=== PATIENT | male | born 2005 | race Caucasian/White ===

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

== ENCOUNTER 2024-12-20 14:51 | Emergency (ER) | payer OTHER, SELFPAY ==
[2024-12-20] VITALS (7 sets, daily range): BP systolic 93–108; BP diastolic 57–82; PULSE 80–108; RESP 12–20; TEMP 36.4–37.2; O2SAT 94–100; BMI 22.0
--- OUTSIDE RECORDS SUMMARY | 2024-12-20 15:13 | XMS RPT_ITS | CCD ---
Author Organization [facility] Care Team Providers Care Assistive Technology Trainer Name Role Phone JOHNNY ELAM Unavailable Unavailable JOHNNY ELAM Unavailable Unavailable TRISTAN SANTIZO Attending Unavailable TRISTAN SANTIZO Primary Care Unavailable TRISTAN SANTIZO Admitting Unavailable Results Test Name Value Interpretation Reference Range Facility CBC + DIFFon 06-30-2024 Baso # 0.02 x10EE3/UL Normal 0.00 - 0.10 [facility] Comment on above: Performed By: #### 2 86466 #### [facility],[address] [place] [address] 93021 Basophils/100 WBC (Bld) 0.3 % Normal 0.0 - 2.0 [facility] Comment on above: Performed By: #### 2 40143 #### [facility],[address] [place] [address] 82441 CBC + DIFF Normal [facility] Comment on above: Result Comment: CBC- COMPLETE BLOOD COUNT Performed By: #### 2 35229 #### [facility],[address] [place] [address] 36158 EO # 0.37 x10EE3/UL Normal 0.00 - 0.50 [facility] Comment on above: Performed By: #### 2 89154 #### [facility],[address] [place] [address] 91206 Eosinophils/100 WBC (Bld) 4.6 % Normal 0.0 - 7.0 [facility] Comment on above: Performed By: #### 2 93772 #### [facility],[address] [place] [address] 50334 Erythrocyte distribution width (RBC) [Ratio] 12.8 % Normal 12.0 - 15.6 [facility] Comment on above: Performed By: #### 2 49645 #### [facility],[address] [place] [address] 74172 Hematocrit (Bld) [Volume fraction] 44.9 % Normal 40.0 - 52.0 [facility] Comment on above: Performed By: #### 2 91982 #### [facility],[address] [place] [address] Hemoglobin (Bld) [Mass/Vol] 15.5 g/dL Normal 13.0 - 17.5 [facility] Comment on above: Performed By: #### 2 45426 #### [facility],[address] [place] [address] Lymph # 0.75 x10EE3/UL Low 0.80 - 2.80 [facility] Comment on above: Performed By: #### 2 55589 #### [place] [id number] Lymphocytes/100 WBC (Bld) 9.1 % Low 20.0 - 45.0 [facility] Comment on above: Performed By: #### 2 74458 #### [facility],[address] [place] [address] 84388 MANUAL DIFF N/A Normal [facility] Comment on above: Performed By: #### 2 16309 #### [facility],[address] [place] [address] 70096 MCH (RBC) [Entitic mass] 34 pg High 27 - 33 [facility] Comment on above: Performed By: #### 2 04889 #### [address] [address] MCHC 35 X10 3 Normal 32 - 36 [facility] Comment on above: Performed By: #### 2 39788 #### [address] [address] MCV (RBC) [Entitic vol] 98 fL Normal 81 - 98 [facility] Comment on above: Performed By: #### 2 21482 #### [facility],[address] [place] [address] 99839 Medina # 1.20 x10EE3/UL High 0.20 - 1.00 [facility] Comment on above: Performed By: #### 2 68335 #### [facility],[address] [place] [address] 23824 MONOS % 14.7 % High 0.0 - 10.0 [facility] Comment on above: Performed By: #### 2 99473 #### [facility],[address] [place] [address] Morphology Juvenal (Bld) [Interp] N/A Normal [facility] Comment on above: Performed By: #### 2 53203 #### [facility],[address] [place] [address] Neut # 5.82 x10EE3/UL Normal 1.50 - 7.10 [facility] Comment on above: Performed By: #### 2 11071 #### [place] [address] Neutrophils/100 WBC (Bld) 71.3 % Normal 46.0 - 76.0 [facility] Comment on above: Performed By: #### 2 67706 #### [facility],[address] [place] [address] PLATELET 245 x10EE3/UL Normal 150 - 450 [facility] Comment on above: Performed By: #### 2 10523 #### [facility],[address] [place] [address] 26555 Platelet mean volume (Bld) [Entitic vol] 7.4 fL Normal 6.4 - 10.5 [facility] Comment on above: Result Comment: AUTO MATED DIFFERENTIAL Performed By: #### 2 26550 #### [facility],[address],[place] [address] RBC 4.56 x 10EE6/UL Normal 4.50 - 6.00 [facility] Comment on above: Performed By: #### 2 18345 #### [facility],[address] [place] [address] 34919 WBC 8.2 x 10EE3/UL Normal 4.5 - 10.8 [facility] Comment on above: Performed By: #### 2 87073 #### [facility],[address] [place] [address] 20962 CMP with eGFRon 06-30-2024 AGE 19 years Normal [facility] Comment on above: Performed By: #### 2 42701 ####[facility],[address] [place] [address] 01135 Albumin [Mass/Vol] 3.5 g/dL Normal 3.4 - 5.0 [facility] Comment on above: Performed By: #### 2 38714 ####[facility],[address] [place], [place] [id number] Albumin/Globulin [Mass ratio] 1.0 {ratio} Normal 0.9 - 1.6 [facility] Comment on above: Performed By: #### 2 88341 ####[facility],[address] [place] [address] 48706 ALK PHOS 73 U/L Normal 46 - 116 [facility] Comment on above: Performed By: #### 2 21752 ####[facility],[address] [place] [address] 38473 ALT [Catalytic activity/Vol] 34 U/L Normal 16 - 63 [facility] Comment on above: Performed By: #### 2 66263 ####[facility],[address] [place] [address] 50409 Anion gap [Moles/Vol] 9 mmol/L Low 10 - 20 [facility] Comment on above: Performed By: #### 2 26682 ####[facility],[address] [place] [address] 56421 AST [Catalytic activity/Vol] 21 U/L Normal 15 - 37 [facility] Comment on above: Performed By: #### 2 53353 ####[facility],[address] [place] [address] 96328 B/C RATIO 13 ratio Normal 0 - 30 [facility] Comment on above: Performed By: #### 2 69487 ####[facility],[address] [place] [address] 10023 Bilirubin [Mass/Vol] 0.3 mg/dL Normal 0.2 - 1.0 [facility] Comment on above: Performed By: #### 2 35955 ####[facility],[address] [place] [address] 83302 Calcium [Mass/Vol] 8.8 mg/dL Normal 8.5 - 10.1 [facility] Comment on above: Performed By: #### 2 48494 ####[facility],[address] [place], [place] [id number] Chloride [Moles/Vol] 103 mmol/L Normal 98 - 107 [facility] Comment on above: Performed By: #### 2 25183 ####[facility],[address] [place] [address] 26911 CMP with eGFR Normal [facility] Comment on above: Result Comment: COMP REHENSIVE METABOLIC PANEL Performed By: #### 2 09799 ####[facility],[address] [place] [address] 06372 CO2 [Moles/Vol] 29.1 mmol/L Normal 21.0 - 32.0 [facility] Comment on above: Performed By: #### 2 18598 ####[facility],[address] [place] [address] 45390 Creatinine [Mass/Vol] 0.92 mg/dL Normal 0.70 - 1.30 [facility] Comment on above: Performed By: #### 2 05653 ####[facility],[address] [place] [address] 26697 GFR/1.73 sq M.predicted among non-blacks MDRD (S/P/Bld) [Vol rate/Area] mL/min/{1.73_m2} Normal 60 - 999 [facility] Comment on above: Performed By: #### 2 26203 ####[facility],[address] [place] [address] 05545 Result Comment: ACCO RDING TO THE NATIONAL KIDNEY DISEASE EDUCATION PROGRAM(NKDE), A NORMAL eGFR IS A VALUE GREATER THAN OR EQUAL TO 60 ML/MIN/1.73 SQ METERS. CHRONIC KIDNEY DISEASE: <60mL/MIN/1.73 SQ METERS KIDNEY FAILURE: <15mL/MIN/1.73 SQ METERS THIS TEST SHOULD ONLY BE USED FOR PATIENTS 18 YEARS OF AGE AND OLDER. Globulin (S) [Mass/Vol] 3.4 g/dL Normal 1.5 - 3.8 [facility] Comment on above: Performed By: #### 2 74619 ####[facility],[address] [place] [address] 33425 Glucose [Mass/Vol] 88 mg/dL Normal 74 - 106 [facility] Comment on above: Performed By: #### 2 25408 ####[facility],[address] [place] [address] 84601 Potassium [Moles/Vol] 4.1 mmol/L Normal 3.5 - 5.1 [facility] Comment on above: Performed By: #### 2 47580 ####[facility],[address] [place] [address] 57950 Protein [Mass/Vol] 6.9 g/dL Normal 6.4 - 8.2 [facility] Comment on above: Performed By: #### 2 86076 ####[facility],[address] [place] [address] 68644 Sodium [Moles/Vol] 137 mmol/L Normal 136 - 145 [facility] Comment on above: Performed By: #### 2 21918 ####[facility],[address] [place] [address] 22267 Urea nitrogen [Mass/Vol] 12 mg/dL Normal 7 - 18 [facility] Comment on above: Performed By: #### 2 12033 ####[facility],[address] [place] [address] 95562 CORONAVIRUS (SARS) ANTIGEN T ESTon 06-30-2024 EXTERNAL QC DONE? YES Normal [facility] Comment on above: Performed By: #### 2 09049 #### [facility],[address] [place] [address] INTERNAL CONTROL PASS Normal [facility] Comment on above: Performed By: #### 2 98858 #### [facility],[address] [place] [address] 82103 SARS ANTIGEN Negative Normal NORMAL: NEGATIVE [facility] Comment on above: Performed By: #### 2 58260 #### [facility],[address] [place] [address] 33783 SEND TO ? NO Normal [facility] Comment on above: Result Comment: SARS -CoV-2 THIS TEST IS BEING USED UNDER THE FDA EUA PROCEDURE. THIS ASSAY HAS BEEN VALIDATED AT [facility] FOR USE WITH NASAL AND NASOPHARYNGEAL SWAB SPECIMENS. INTERPRETIVE DATA TEST RESULTS SHOULD ALWAYS BE CONSIDERED IN THE CONTEXT OF CLINICAL OBSERVATIONS AND EPIDEMIOLOGICAL DATA IN MAKING FINAL DIAGNOSIS AND PATIENT MANAGEMENT DECISIONS. PATIENT MANAGEMENT SHOULD FOLLOW CURRENT CDC GUIDELINES. THE LARRY SARS ANTIGEN MICH DOES NOT DIFFERENTIATE BETWEEN SARS-CoV & SARS-CoV-2. A POSITIVE TEST RESULT INDICATES THE PRESENCE OF SARS-CoV-2 NUCLEOCAPSID PROTEIN ANTIGEN, AND THE PATIENT IS INFECTED WITH THE VIRUS AND PRESUMED TO BE CONTAGIOUS. A NEGATIVE TEST RESULT FOR THIS TEST MEANS THAT SARS-CoV-2 NUCLEOCAPSID PROTEIN ANTIGEN WAS NOT PRESENT IN THE SPECIMEN ABOVE THE LIMIT OF DETECTION. HOWEVER, A NEGATIVE RESULT DOES NOT RULE OUT COVID-19 AND SHOULD NOT BE USED THE SOLE BASIS FOR TREATMENT OR PATIENT MANAGEMENT DECISIONS. A NEGATIVE RESULT DOES NOT EXCLUDE THE POSSIBILITY OF COVID-19. NEGATIVE RESULTS, FROM PATIENTS WITH SYMPTOM ONSET BEYOND FIVE DAYS, SHOULD BE TREATED PRESUMPTIVE AND CONFIRMATION WITH A MOLECULAR ASSAY, IF NECESSARY, FOR PATIENT MANAGEMENT, MAY BE PERFORMED. WHEN DIAGNOSTIC TESTING IS NEGATIVE, THE POSSIBLILTY OF A FALSE NEGATIVE RESULT SHOULD BE CONSIDERED IN THE CONTEXT OF A PATIENT'S RECENT EXPOSURES AND THE PRESENCE OF CLINICAL SIGNS AND SYMPTOMS CONSISTENT WITH COVID-19. THE POSSIBILITY OF A FALSE NEGATIVE RESULT SHOULD ESPECIALLY BE CONSIDERED IF THE PATIENT'S RECENT EXPOSURES OR CLINICAL PRESENTATION INDICATE THAT COVID-19 IS LIKELY, AND DIAGNOSTIC TESTS FOR OTHER CAUSES OF ILLNESS (e.g., OTHER RESPIRATORY ILLNESS) ARE NEGATIVE. IF COVID-19 IS STILL SUSPECTED BASED ON EXPOSURE HISTORY TOGETHER WITH OTHER CLINICAL FINDINGS, RE-TESTING SHOULD BE CONSIDERED BY HEALTHCARE PROVIDERS IN CONSULTATION WITH PUBLIC HEALTH AUTHORITIES. Performed By: #### 2 07397 #### [facility],[address] [place] [address] CT ABDOMEN/PELVIS [facility] 2023 CT ABDOMEN/PELVIS [place] [address] Patient: FELICIA WELLER Phone#: : 2005 Age: 19 Gender: M Pt. Type: ER Account: [id number] Location: [facility] Ordering: TRISTAN SANTIZO Exam Date: 06/30/2024/14:12 Family Phys: Charge Code: [id number] Physician: [place] Order #: [id number] Dose#: 10.40 PROCEDURE: CT ABDOMEN/PELVIS WITH CONTRAST COMPARISON: [facility], CT, ABDOMEN/PELVIS W CON, 11/04/2017, 20:12. INDICATIONS: Abdominal pain. TECHNIQUE: After obtaining the patient's consent, CT images were created with non-ionic intravenous contrast material. All CT scans at this facility use dose modulation, iterative reconstruction, and/or weight based dosing when appropriate to reduce radiation dose to as low as reasonably achievable. IV CONTRAST: Omnipaque 350,80ml TOTAL DOSE: 10.40 CTDIvol(mGy) FINDINGS: LIVER: Normal. No enlargement, atrophy, abnormal density, or significant focal lesion. BILIARY: Normal. No visible dilatation or calcification. PANCREAS: Normal. No lesion, fluid collection, ductal dilatation, or atrophy. SPLEEN: Surgical clips are present at the splenic hilum. No enlargement or focal lesion. KIDNEYS: Normal. No mass, obstruction, or calcification. ADRENALS: Normal. No mass or enlargement. AORTA/VASCULAR: Normal. No aneurysm or dissection. RETROPERITONEUM: Normal. No mass or adenopathy. BOWEL/MESENTERY: Normal. No visible mass, obstruction, or bowel wall thickening. ABDOMINAL WALL: Normal. No mass or hernia. URINARY BLADDER: Normal. No visible focal wall thickening, lesion, or calculus. PELVIC NODES: Normal. No adenopathy. PELVIC ORGANS: Trace free fluid is present in the pelvis. No visible mass. Pelvic organs appropriate for patient age. BONES: Normal. No bony lesion or fracture. LUNG BASES: Normal. No visible pulmonary or pleural disease. OTHER: Negative. Continued Report - Page 2 of 2 Patient: FELICIA WELLER Phone#: : 2005 Age: 19 Gender: M Pt. Type: ER Account: [id number] Location: [facility] Ordering: TRISTAN SANTIZO Exam Date: 06/30/2024/14:12 Family Phys: Charge Code: [id number] Physician: [place] Order #: [id number] Dose#: 10.40 CONCLUSION: 1. Trace fluid is present in the pelvis. 2. There is no evidence of acute abdominal or pelvic abnormality. Dictated by: Shante Cordoba MD on 06/30/2024 at 14:42 Approved by: Shante Cordoba MD on 06/30/2024 at 14:46 Normal [facility] ED MED ADMINISTRATION DETAIL on 06-30-2024 ED MED ADMINISTRATION DETAIL Chief Design Branch Medication Administration Record [address] [address] [id number] 06/30/2024 Patient: FELICIA WELLER Sex: Male : 2005 Age: 19y MEASUREMENTS: Wt: 74.8 kg, Ht/Shiva: 73.0 in, BMI: 21.77 ALLERGIES: No known drug allergies Medication Ordered Medication Administration Date/Time 1 of 1 Normal [facility] ED NURSES CLINICAL NOTEon ED NURSES CLINICAL NOTE Nurse Narrative Nurse Clinical Narrative [address] [address] [id number] 06/30/2024 Patient: FELICIA WELLER Sex: Male : 2005 Age: 19y Disposition: Discharge to Home Disposition Decision Time: 15:27 06/30/2024 Departure Time: 15:41 06/30/2024 TRIAGE Arrived by private vehicle. Historian: patient. Accompanied by family. Triage time: 13:45 06/30/2024. Acuity: LEVEL 3. Chief Complaint: ABDOMINAL PAIN and DIARRHEA. Onset. (Saturday). The patient has had diarrhea and abdominal pain. No nausea or vomiting. SEPSIS SCREEN: NEGATIVE. SIRS criteria negative: heart rate greater than 90. No possible sources of infection. -- 13:53 06/30/24 MARLEN Young R.N. 13:52 06/30/24. BP: 122/78 MAP: 93. HR: 91. RR: 17. O2 saturation: 98% Temperature: 98.9 F. Pain level now 4/10. Intermittent. -- 13:52 06/30/24 MARLEN Young R.N. Measurements: 13:51 06/30/24 Wt: 74.8 kg, Ht/Shiva: 73.0 in, BMI: 21.77 -- 13:51 06/30/24 MARLEN Young R.N. Medications: no known home medications -- 13:50 06/30/24 MARLEN Young R.N. Allergies: 1 of 3 Nurse Narrative no known drug allergies -- 13:49 06/30/24 MARLEN Young R.N. Home Medications/Allergy Information Source: patient -- 13:49 06/30/24 MARLEN Young R.N. Problems: no known problem -- 13:50 06/30/24 MARLEN Young R.N. 13:45 06/30/24. Preferred pharmacy ([facility]). -- 13:53 06/30/24 MARLEN Young R.N. ADDITIONAL SURGERIES: Splenectomy -- 13:49 06/30/24 MARLEN Young R.N. Hernia Repair -- 13:50 06/30/24 MARLEN Young R.N. elbow -- 13:50 06/30/24 MARLEN Young R.N. History 13:45 06/30/24. PAST MEDICAL HX: Immunizations: status is unknown. SOCIAL HX: Heavy tobacco smoker (cigarette)- 1 pack per day. Occasional alcohol use. Weekly drug use: marijuana. Infectious disease exposure: No infectious disease exposure. ABUSE ASSESSMENT: The patient answered yes to the question(s) Do you feel safe in your home? and no to the question(s) Are you afraid to go home?. Abuse denied. No suspicion of abuse. SELF HARM ASSESSMENT: Self harm assessment was performed. The patient answered no to the question(s) Have you recently felt down, depressed, or hopeless? and Do you have thoughts of harming or killing yourself?. FALL RISK ASSESSMENT: Fall risk assessment completed. No risk factors identified. -- 13:53 06/30/24 MARLEN Young R.N. 2 of 3 Nurse Narrative 13:45 06/30/24. SOCIAL HX: The patient has not traveled outside the [place] Infectious disease exposure: No infectious disease exposure. -- 13:53 06/30/24 MARLEN Young R.N. Interventions 13:45 06/30/24. Advanced care plan (Full Code). -- 13:53 06/30/24 MARLEN Young R.N. PHYSICAL ASSESSMENT 14:19 06/30/24. Ambulatory to room. GENERAL / NEURO / PSYCH: Alert. Oriented X 4. Appears in no acute distress. HEENT: Mucous membranes are pink. RESPIRATORY: Respirations not labored. Breath sounds within normal limits. CVS: Capillary refill less than 2 seconds. GI / : Abdomen soft. Abdominal tenderness in the periumbilical area. Bowel sounds within normal limits. SKIN: Skin is warm and dry. -- 14:19 06/30/24 MARLEN Long R.N. NURSING PROGRESS NOTES 14:06/30/24. ( Patient swabbed for flu and covid and sent to lab.). -- 14:20 06/30/24 MARLEN Long R.N. 14:20 06/30/24. Site #1 started via IV in the right antecubital space with a 20g angiocath; 1 attempt. Blood drawn: red, green, purple and yellow tube(s). Saline lock flushed with 5 mL saline. -- 14:20 06/30/24 MARLEN Long R.N. DISPOSITION / DISCHARGE 15:40 06/30/24. Site #1 removed upon discharge. Bandaid applied. -- 15:40 06/30/24 MARLEN Long R.N. Departure time: 15:41 06/30/2024. Condition at departure: improved. No learning barriers present. Discharge instructions provided and reviewed with the patient. The patient was discharged by the physician. The patient was discharged home and accompanied by parent. The patient left ambulatory and via private vehicle. Parent driving. -- 15:41 06/30/24 MARLEN Long R.N. (Electronically signed by Martin Long R.N. 06/30/24 15:41:22 EST) Generated by [facility] 3 of 3 Normal [facility] ED ORDER SHEET ([facility] ONLY)on 06-30-2024 ED ORDER SHEET ([facility] ONLY) Order Sheet Order Sheet [address] [address] [id number] 06/30/2024 Patient: FELICIA WELLER Sex: Male : 2005 Age: 19y MEASUREMENTS: Wt: 74.8 kg, Ht/Shiva: 73.0 in, BMI: 21.77 ALLERGIES: No known drug allergies MEDICATION/IV/DRIP/FLUID ORDERS Order Description Priority Entered Acknowledged Completed LAB ORDERS Order Description Priority Entered Acknowledged Collected Completed CBC w Diff Stat Stat 13:57 06/30/2024 14:00 06/30/2024 Bhargav Oliveira D.O. RShanta CMP Stat Stat 13:57 06/30/2024 14:00 06/30/2024 Bhargav Oliveira D.O. R.N. Lipase Stat Stat 13:57 06/30/2024 14:00 06/30/2024 Bhargav Oliveira D.O. R.N. Urinalysis Stat Stat 13:57 06/30/2024 14:00 06/30/2024 Tristan Long, 1 of 2 Order Sheet Juan Santizo R.N. Flu Swab (Influenzae Stat 13:57 06/30/2024 14:00 06/30/2024 AAg) Stat Bhargav Oliveira D.O. R.N. Rapid COVID (SARS) Stat 13:57 06/30/2024 14:00 06/30/2024 ANTIGEN TEST Stat Bhargav Oliveira D.O. R.N. Lyme Early Stat 14:10 06/30/2024 14:18 06/30/2024 (Signs/Symp <=30 Tristan Long, Days) [CCL] Stat Juan Santizo R.N. DIAGNOSTIC STUDY ORDERS Order Description Priority Entered Acknowledged Completed CT ABD/PEL w Cont Stat Stat 13:57 06/30/2024 14:00 Tristan Santizo 06/30/2024 Juan Long R.N. Reason for Study: Abdominal Pain STAFF ORDERS Order Description Priority Entered Acknowledged Collected Completed IV Saline Lock 13:57 06/30/2024 14:00 06/30/2024 Bhargav Oliveira D.O. R.N. [Electronically signed by Tristan Santizo D.O. (06/30/2024 15:29 EST)] 2 of 2 Normal [facility] ED PHYSICIAN CLINICAL REPORT on 06-30-2024 ED PHYSICIAN CLINICAL REPORT Narrative Physician Clinical Narrative [address] [address] [id number] 06/30/2024 Patient: FELICIA WELLER Sex: Male : 2005 Age: 19y Disposition: Discharge Disposition Decision Time: 15:27 06/30/2024 Measurements Wt: 74.8 kg, Ht/Shiva: 73.0 in, BMI: 21.77 Initial Vital Sign Measured Time BP MAP HR RR O2Sat ETCO2 Temp Pain GCS RTS 13:52 06/30/2024 122/78 93 91 17 98% 98.9 F 4 Time Seen: 13:52 06/30/2024. Arrived- By private vehicle. Historian- patient. HISTORY OF PRESENT ILLNESS Chief Complaint: ABDOMINAL PAIN. (3 days). (Nausea, vomiting, diarrhea over the past 3 days. This is improved however last night began having upper abdominal pain. Mainly epigastric and right upper quadrant. Feeling somewhat improved this morning however the pain was very sharp last night and he only slept approximately 2 hours. Denies any fever, chills, urinary symptoms, cough, chest pain, shortness of breath. No sick contacts.). REVIEW OF SYSTEMS RESPIRATORY: No difficulty breathing or cough. CVS: No chest pain. CONSTITUTIONAL: No fever or chills. : No difficulty with urination, pain with urination or urinary frequency. GI: No constipation. 1 of 15 Narrative PAST HISTORY no known problem Surgeries: elbow Hernia Repair Splenectomy Medications: no known home medications Allergies: no known drug allergies Home Medications/Allergy Information Source: patient - Aline Young R.N., 06/30/2024 13:49 EST SOCIAL HISTORY Smoker - current smoking amount unknown. No alcohol use or drug use. ADDITIONAL NOTES The nursing notes have been reviewed. PHYSICAL EXAM Vital Signs: Have been reviewed. Appearance: Alert. No acute distress. ENT: Pharynx normal. Neck: Normal inspection. Neck supple. CVS: Normal heart rate and rhythm. Heart sounds normal. Pulses normal. Respiratory: No respiratory distress. Breath sounds normal. Abdomen: Soft and nontender. Skin: Skin warm and dry. Normal skin color. No rash. 2 of 15 Narrative Extremities: No lower extremity edema. Neuro: No motor deficit. No sensory deficit. LABS, X-RAYS, AND EKG CT Abdomen - Pelvis: Normal study. The study was independently viewed by me and interpreted by the radiologist. Laboratory Tests: CBC + DIFF Final KIRSTIN: 06/30/2024 14:10:00 EST MsgRcvd: 06/30/2024 14:33 EST Lab Test Result Reference Status Received Comments 06/30/2024 14:33 CBC-COMPLETE CBC + DIFF Final EST BLOOD COUNT 06/30/2024 14:33 WBC 8.2 x 10/UL 4.5 - 10.8 Final EST 06/30/2024 14:33 RBC 4.56 x 10/UL 4.50 - 6.00 Final EST 06/30/2024 14:33 HEMOGLOBIN 15.5 g/dl 13.0 - 17.5 Final EST 06/30/2024 14:33 HEMATOCRIT 44.9 % 40.0 - 52.0 Final EST 06/30/2024 14:33 MCV 98 fl 81 - 98 Final EST 34 pg 06/30/2024 14:33 MCH 27 - 33 Final Above high normal EST 06/30/2024 14:33 MCHC 35 X10 3 32 - 36 Final EST 3 of 15 Narrative 06/30/2024 14:33 RDW/CV 12.8 % 12.0 - 15.6 Final EST 06/30/2024 14:33 PLATELET 245 x10/UL 150 - 450 Final EST 06/30/2024 14:33 AUTOMATED MPV 7.4 fl 6.4 - 10.5 Final EST DIFFERENTIAL 06/30/2024 14:33 NEUT % 71.3 % 46.0 - 76.0 Final EST 9.1 % 06/30/2024 14:33 LYMPH % 20.0 - 45.0 Final Below low normal EST 14.7 % 06/30/2024 14:33 MONOS % 0.0 - 10.0 Final Above high normal EST 06/30/2024 14:33 EO % 4.6 % 0.0 - 7.0 Final EST 06/30/2024 14:33 BASO % 0.3 % 0.0 - 2.0 Final EST 0.75 x10/UL 06/30/2024 14:33 Lymph # 0.80 - 2.80 Final Below low normal EST 06/30/2024 14:33 Neut # 5.82 x10/UL 1.50 - 7.10 Final EST 1.20 x10/UL 06/30/2024 14:33 Medina # 0.20 - 1.00 Final Above high normal EST 06/30/2024 14:33 EO # 0.37 x10/UL 0.00 - 0.50 Final EST 06/30/2024 14:33 Baso # 0.02 x10/UL 0.00 - 0.10 Final EST 06/30/2024 14:33 MANUAL DIFF N/A New Order EST 4 of 15 Narrative 06/30/2024 14:33 MORPHOLOGY N/A New Order EST CMP with eGFR Final KIRSTIN: 06/30/2024 14:10:00 EST MsgRcvd: 06/30/2024 14:53 EST Lab Test Result Reference Status Received Comments COMPREHENSIVE 06/30/2024 CMP with eGFR Final METABOLIC 14:53 EST PANEL 06/30/2024 SODIUM 137 mmol/l 136 - 145 Final 14:53 EST 06/30/2024 POTASSIUM 4.1 mmol/L 3.5 - 5.1 Final 14:53 EST 06/30/2024 CHLORIDE 103 mmol/L 98 - 107 Final 14:53 EST 06/30/2024 CO2 29.1 mmol/L 21.0 - 32.0 Final 14:53 EST 06/30/2024 GLUCOSE 88 mg/dl 74 - 106 Final 14:53 EST 06/30/2024 BUN 12 mg/dl 7 - 18 Final 14:53 EST 06/30/2024 CREATININE 0.92 mg/dl 0.70 - 1.30 Final 14:53 EST 06/30/2024 AST/SGOT 21 U/L 15 - 37 Final 14:53 EST 06/30/2024 ALK PHOS 73 U/L 46 - 116 Final 14:53 EST 5 of 15 Narrative 06/30/2024 C (more content not included)... Normal [facility] ED SUPER BILLon 06-30-2024 ED SUPER BILL [address] [address] [id number] 06/30/2024 Patient: FELICIA WELLER Sex: Male : 2005 Age: 19y Item Professional Category Description Facility Code Code Quantity Fee Total Nurse/E/M EMERGENCY 453581 1 $0.00 $0.00 DEPARTMENT VISIT MODERATE SEVERITY (54494) Grand Total $0.00 Providers Tristan Santizo D.O. Chief Complaint ABDOMINAL PAIN. Principal Diagnosis Gastroenteritis. ICD-10 Codes 1 of 2 [facility] K52.9: Noninfective gastroenteritis and colitis, unspecified 2 of 2 Normal [facility] ED VISIT SUMMARYon ED VISIT SUMMARY Visit Overview Visit Overview [address] [address] [id number] 06/30/2024 Patient: FELICIA WELLER Sex: Male : 2005 Age: 19y 06/30/2024 03:41 PM EST ED Arrival:13:06 06/30/2024 EST Status: Recent Travel:no Language:eng Adv Directive: Isolation Status: Ethnicity:N Fall Risk:no risk Infectious Disease Exposure:no Measurements:6'1 / 185.4 Self-Harm Status:risk Sepsis Screen:negative cm 165.0 lb / 74.8 kg Chief Complaint:ABDOMINAL PAIN, DIARRHEA, and (Saturday) ALLERGIES No Known Drug Allergies HOME MEDICATIONS None PAST MEDICAL HISTORY / PROBLEMS Immunizations: status is unknown None 1 of 3 Visit Overview PAST SURGICAL HISTORY elbow Hernia Repair Splenectomy SOCIAL HISTORY Smoking status: Yes Alcohol use: Yes Drug use: Yes ED COURSE MEDICATIONS GIVEN IN EMERGENCY DEPARTMENT IV SITE INFORMATION INTAKE OUTPUT REASSESMENT (most recent) 14:19 06/30/24. Ambulatory to room. GENERAL / NEURO / PSYCH: Alert. Oriented X 4. Appears in no acute distress. HEENT: Mucous membranes are pink. RESPIRATORY: Respirations not labored. Breath sounds within normal limits. CVS: Capillary refill less than 2 seconds. GI / : Abdomen soft. Abdominal tenderness in the periumbilical area. Bowel sounds within normal limits. SKIN: Skin is warm and dry. VITAL SIGNS First Vitals Last Vitals Temp 13:52 06/30/24 98.9 F Temp 13:52 06/30/24 98.9 F BP 13:52 06/30/24 122/78 BP 13:52 06/30/24 122/78 HR 13:52 06/30/24 91 HR 13:52 06/30/24 91 RR 13:52 06/30/24 17 RR 13:52 06/30/24 17 O2 Sat 13:52 06/30/24 98% O2 Sat 13:52 06/30/24 98% Pain 13:52 06/30/24 4 Pain 13:52 06/30/24 4 ETCO2 13:52 06/30/24 ETCO2 13:52 06/30/24 2 of 3 Visit Overview First Vitals Last Vitals GCS 13:52 06/30/24 GCS 13:52 06/30/24 RTS 13:52 06/30/24 RTS 13:52 06/30/24 PROCEDURES NURSING INTERVENTIONS LABS / STUDIES LABS / STUDIES ORDERED CBC w Diff CMP CT ABD/PEL w Cont Flu Swab (Influenzae AAg) Lipase Lyme Early (Signs/Symp <=30 Days) [CCL] Rapid COVID (SARS) ANTIGEN TEST Urinalysis CLINICAL IMPRESSION GASTROENTERITIS 3 of 3 Normal [facility] ED VITALS FLOW SHEETon 06-30 ED VITALS FLOW SHEET Vitals Vital Sign Flow Sheet [address] [place] [address] [id number] 06/30/2024 Patient: FELICIA WELLER Sex: Male : 2005 Age: 19y Measurements Wt: 74.8 kg, Ht/Shiva: 73.0 in, BMI: 21.77 Measured Time BP MAP HR RR O2Sat ETCO2 Temp Pain GCS RTS 13:52 06/30/2024 122/78 93 91 17 98% 98.9 F 4 1 of 1 Normal [facility] INFLUENZA VIRUS RAPID A/Bon 06-30-2024 INFLUENZA VIRUS RAPID A/B INFLUENZA A NEGATIVE INFLUENZA B NEGATIVE INTERNAL NEG QC PASS INTERNAL POS QC PASS EXTERNAL QC DONE? YES SEND TO IC? NO A NEGATIVE TEST RESULT DOES NOT EXCLUDE INFECTION WITH INFLUENZA A OR B. THEREFORE, THE RESULTS OBTAINED FROM THIS FLU TEST SHOULD BE USED IN CONJUCTION WITH CLINICAL FINDINGS TO MAKE AN ACCURATE DIAGNOSIS. A POSITIVE RESULT DOES NOT RULE OUT CO-INFECTIONS WITH OTHER PATHOGENS OR IDENTIFY ANY SPECIFIC INFLUENZA A VIRUS SUBTYPE.CO-INFECTION WITH INFLUENZA A AND B IS RARE. IT IS RECOMMENDED THAT DUAL POSITIVE RESULTS BE CONFIRMED BY VIRAL CULTURE OR AN FDA-CLEARED INFLUENZA A AND B MOLECULAR ASSAY. INDIVIDUALS WHO HAVE RECEIVED NASALLY ADMINISTERED INFLUENZA A VACCINE MAY TEST POSITIVE IN COMMERCIALLY AVAILABLE INFLUENZA RAPID DIAGNOSTIC TESTS FOR UP TO THREE DAYS. RESULT CRITICAL? NO Normal [facility] Comment on above: Performed By: #### 2 [id number] ####[address] [address] LIPASEon 06-30-2024 Lipase [Catalytic activity/Vol] 21.0 U/L Normal 15.0 - 78.0 [facility] Comment on above: Result Comment: *PLE ASE NOTE THAT RANGES FOR LIPASE HAVE CHANGED OF 07/05/23 DUE TO AN ASSAY UPDATE BY THE SWORD SWALLOWER.THE NEW ASSAY RANGE IS 6-250 U/L, WITH A REFERENCE RANGE OF 16-77 U/L. Performed By: #### 2 [id number] #### [address] [place] [address] Pelvis WITH IV Contraston Pelvis WITH IV Contrast [facility] Imaging Services [address] [place] [address] Pelvis WITH IV Contrast MR#: [id number] Acct: [id number] Name: FELICIA WELLER Rep #: [id number] : 2005 M 15 From: Angela Aldrich PCP: Care Physician, No Primary Status: REG CLI Study: Pelvis WITH IV Contrast Date of Exam: 07/04/20 Exam# [id number] Ordering Dr: Ángel Moss NP P-C STUDY: CT PELVIS WITH CONTRAST REASON FOR EXAM: Male, 15 years old. HERNIA, LEFT SIDE BULGE, PT DOES A LOT OF LIFTING RADIATION DOSAGE (If Supplied By Facility): CTDIvol = ( 17.24 ) mGy, DLP = ( 883.82 ) mGycm TECHNIQUE: Transaxial imaging of the pelvis was performed without oral contrast. IV 100mL Isovue-300 was administered intravenously. Individualized dose optimization techniques were used for this CT. COMPARISON: None. FINDINGS: Normal urinary bladder. Normal visualized small intestine. Normal visualized colon. There is no pelvic fluid. There is no pelvic lymphadenopathy or mass lesion. Normal visualized pelvic arteries. There is a cystic lesion in the left inguinal canal near the inner ring measures approximately 1.9 x 0.9 x 0.9 cm may represent a seminiferous cyst. Normal osseous structures. CT/Pelvis WITH IV Contrast IMPRESSION: There is a cystic lesion in the left inguinal canal near the inner ring measures approximately 1.9 x 0.9 x 0.9 cm may represent a seminiferous cyst. Electronically Signed: Angela Valente, at 10:03 EST Tel , Service support , CC: AGUEDA Moss; No Primary Care Physician Research Administrator: Signed Normal [facility] Chest PA and Lateralon 02-01 Chest PA and Lateral [facility] Imaging Services [address] [place] [address] Chest PA and Lateral MR#: [id number] Acct: [id number] Name: FELICIA WELLER Rep #: [id number] : 2005 M 14 From: Keyur Lucas MD PCP: Status: REG CLI Study: Chest PA and Lateral Date of Exam: 02/02/20 Exam# [id number] Ordering Dr: Aspen Gutierrez NP STUDY: X-RAY CHEST REASON FOR EXAM: Male, 14 years old. fever, cough x 12 days TECHNIQUE: PA and lateral views of the chest. COMPARISON: None. FINDINGS: Patchy alveolar opacities in the upper left lung and lower right lung worrisome for bilateral pneumonia. Correlation with CT would be useful. There is no demonstrated pleural abnormality. Normal size heart. Normal mediastinum and vimal. Normal visualized pulmonary arteries. Normal visualized aortic arch and descending thoracic aorta. Normal visualized thoracic spine. Normal visualized ribs, clavicles, and shoulders. There is no demonstrated abnormality of the visualized soft tissue structures of the upper abdomen. RAD/Chest PA and Lateral IMPRESSION: Suspect bilateral pneumonia and correlation with CT would be useful. 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 [facility] Comment on above: Result Comment: Nega tive for This test was developed and its performance characteristics determined by [facility]'s [facility] [place]. This test has been authorized by FDA under an Emergency Use Authorization (EUA). This test has been validated in accordance with the FDA's Guidance Document Policy for Diagnostics Testing in Laboratories Certified to Perform High Complexity Testing under CLIA prior to Emergency use Authorization for Coronavirus Disease 2019 during the Public Health Emergency issued on September 05, 2019. COVID19 (SARS This test was developed and its performance characteristics determined by [facility]'s [facility] [place]. This test has been authorized by FDA under an Emergency Use Authorization (EUA). This test has been validated in accordance with the FDA's Guidance Document Policy for Diagnostics Testing in Laboratories Certified to Perform High Complexity Testing under CLIA prior to Emergency use Authorization for Coronavirus Disease 2019 during the Public Health Emergency issued on September 05, 2019. CoV2) by PCR. This test was developed and its performance characteristics determined by [facility]'s [facility] [place]. This test has been authorized by FDA under an Emergency Use Authorization (EUA). This test has been validated in accordance with the FDA's Guidance Document Policy for Diagnostics Testing in Laboratories Certified to Perform High Complexity Testing under CLIA prior to Emergency use Authorization for Coronavirus Disease 2019 during the Public Health Emergency issued on September 05, 2019. Coronavirus 2019on 0 COVID 19 Source COLLEGE PROFESSOR COLLEGE PROFESSOR Normal [facility] CNOVon 2018 CNOV Office Visit (PEDSWS) ----[facility]EL[facility]LL[facility] ([id number]) [facility] Ztyynfkzpd29/13/18 8:45 AM JOHNNY ELAM PEDSWS During your visit today, we recorded the following information about you: Temperature Pulse Respiration Blood pressure 97.1 degrees 80/minute 16/minute 102/62 Weight Height 66.7 kg 1.829 mAdam Suzanne Elam MD 2018 10:03 AM SignedCC: Patient presents with:Check finger: Right ring finger, noting clear drainage and redness. x 1 week.No known injuryHistory:Felicia Weller presents with swelling and redness in the R ring finger.Symptoms began 1 week(s) and since then have been progressive. The pain israted as 6 on a scale of 1-10, when touching it. Symptoms are not a result of an injury.started with blister/pimplePAST MEDICAL HISTORYDiagnosis Date- Blunt abdominal trauma 11/04/2017- Splenic laceration 11/04/2017ROS: otherwise normalPhysical Exam Findings:smiling and alert, in no acute distressExtremeties R 4th finger with split of cuticle with dried drainage. Erythemaand tenderness surrounding and extending across finger about 1 cm proximal tocuticle.Assessment: cellulitis of finger.Plan:soaksOffice Visit on 04/19/18-INFLUENZA VACCINE QUADRIVALENT AGE 3 YRS PLUS + IM-mupirocin (BACTROBAN) 2 % ointment-cephALEXin (KEFLEX) 500 mg capsulereviewed criteria for calling or returning for further evaluation. Johnny Elam MDmando [facility] 2018 10:03 AM Gufgox76 year old male here for INACTIVATED INFLUENZA VACCINE.6976-4136 SeasonPatient is identified by name and date of : Yes [] CONTRAINDICATIONS color enhancedsectionAge less than 6 months? NoAllergy to eggs, chicken, chicken feathers, or chicken dander? NoAllergy to thimerosal (a preservative) or formaldehyde, gelatin? NoHistory of severe reaction to any vaccine component or a previous dose ofinfluenza vaccination? NoHistory of Guillain-Williamsburg Syndrome within 6 weeks after a previous influenzavaccine? NoPatient is not moderately or severely ill? NoCurrent temperature greater or equal to 100.4F? NoHistory of Bone Marrow Transplant prior 6 months or solid organ transplant inthe past 3 months ? NoHistory of fainting after a prior injection or medical procedure? No-? If patient has fainted in the past, the CDC recommends sitting or lying downfor 15 minutes after the vaccination. [] VERIFICATION colorenhanced sectionWas the answer Yes for any of the above contraindications? Nocontraindications present. Acceptable to proceed with vaccine.Patient/guardian agrees the above answers are true to the best of theirknowledge? YesFlu vaccine information sheet given? YesSee immunization activity in [facility] for details of immunizations adminsteredtoday.Patient age: [age] year old For The 3594-9366 Flu Season6-35 months old: Fluzone 0.25 ml - IM (Preservative Free)3 years of age: Fluzone 0.5 ml - IM (Preservative Free)3 years and older: Fluzone 0.5 ml- IM-(with Preservatives)65+ years old:2-49 years old Fluzone High-Dose 0.5 ml - IM (Preservative Free)FLUMIST- intranasalREMEMBER: If patient is less than 9 years of age and this is the first vaccineof Influenza to be received in any flu season, they should receive a seconddose in one months time.Referring Provider: SELF [200]Allergies As of Date: 2018(No Known Allergies)Date Reviewed: 2018Reviewed by: Johnny Elam - Fully AssessedReason for Visit: Check finger [Other] Cmt: Right ring finger, noting clear drainage and redness. x 1 week. No known injury Imm/Inj [58] Cmt: Flu VaccineReason For Visit History RecordedPrimary Visit Diagnosis:Encounter for immunization [Z23] Other Visit Diagnoses:Cellulitis of finger of right hand [L03.011] Need for vaccination [Z23]Order(s):mupirocin (BACTROBAN) 2 % ointmentApply 1 application to affected area twice daily.Disp: 1 TubeRfl: 0 cephALEXin (KEFLEX) 500 mg capsuleTake 1 capsule by mouth three times daily for 10 days.Disp: 30 capsuleRfl: 0 INFLUENZA VACCINE QUADRIVALENT AGE 3 YRS PLUS + IM [[id number]] Order #: [id number] as of 2018 Sig: MUPIROCIN 2 % TOPICAL OINTMENT Apply 1 application to affect* CEPHALEXIN 500 MG CAPSULE Take 1 capsule by mouth three*Problem List As Of Date 2018 Noted Resolved Laceration of spleen [S36.039A] INVALID FOR*Prescriptions ordered this encounter Disp Refills Start End MUPIROCIN 2 % TOPICAL OINTMENT 1 Tu* 0 2018 Route: TOPICAL Sig: Apply 1 application to affected area twice daily. CEPHALEXIN 500 MG CAPSULE 30 c* 0 2018 04/29/2018 Route: ORAL Sig: Take 1 capsule by mouth three times daily for 10 days. Status:Closed by JOHNNY ELAM MD on 04/19/18 Normal [facility] PROGRESSon 2018 Protein mass conc HNO ID: [id number] thor: Екатерина Ramos LPNService: (none)Author Type: (none)Type: Progress NotesFiled: 2018 10:03 AMNote Text:13 year old male here for INACTIVATED INFLUENZA VACCINE.9893-9560 SeasonPatient is identified by name and date of : Yes [] CONTRAINDICATIONS colorenhanced sectionAge less than 6 months? NoAllergy to eggs, chicken, chicken feathers, or chicken dander? NoAllergy to thimerosal (a preservative) or formaldehyde, gelatin? NoHistory of severe reaction to any vaccine component or a previous dose ofinfluenza vaccination? NoHistory of Guillain-Williamsburg Syndrome within 6 weeks after a previousinfluenza vaccine? NoPatient is not moderately or severely ill? NoCurrent temperature greater or equal to 100.4F? NoHistory of Bone Marrow Transplant prior 6 months or solid organ transplantin the past 3 months ? NoHistory of fainting after a prior injection or medical procedure? No-? If patient has fainted in the past, the CDC recommends sitting or lyingdown for 15 minutes after the vaccination. [] VERIFICATIONcolor enhanced sectionWas the answer Yes for any of the above contraindications? Nocontraindications present. Acceptable to proceed with vaccine.Patient/guardian agrees the above answers are true to the best of theirknowledge? YesFlu vaccine information sheet given? YesSee immunization activity in [facility] for details of immunizationsadminstered today.Patient age: [age] year old For The 0184-4580 Flu Season6-35 months old: Fluzone 0.25 ml - IM (Preservative Free)3 years of age: Fluzone 0.5 ml - IM (Preservative Free)3 years and older: Fluzone 0.5 ml- IM-(with Preservatives)65+ years old:2-49 years old Fluzone High-Dose 0.5 ml - IM (Preservative Free)FLUMIST- intranasalREMEMBER: If patient is less than 9 years of age and this is the firstvaccine of Influenza to be received in any flu season, they should receivea second dose in one months time. Normal [facility] Protein mass conc HNO ID: [id number] thor: Johnny Valdez: (none)Author Type: PhysicianType: Progress NotesFiled: 2018 10:03 AMNote Text:CC: Patient presents with:Check finger: Right ring finger, noting clear drainage and redness. x 1week. No known injuryHistory:Felicia Weller presents with swelling and redness in the R ring finger. Symptoms began 1 week(s) and since then have been progressive. The painis rated as 6 on a scale of 1-10, when touching it. Symptoms are not a result of an injury.started with blister/pimplePAST MEDICAL HISTORYDiagnosis Date- Blunt abdominal trauma 11/04/2017- Splenic laceration 11/04/2017ROS: otherwise normalPhysical Exam Findings:smiling and alert, in no acute distressExtremeties R 4th finger with split of cuticle with dried drainage.Erythema and tenderness surrounding and extending across finger about 1 cmproximal to cuticle.Assessment: cellulitis of finger.Plan:soaksOffice Visit on 04/19/18-INFLUENZA VACCINE QUADRIVALENT AGE 3 YRS PLUS + IM-mupirocin (BACTROBAN) 2 % ointment-cephALEXin (KEFLEX) 500 mg capsulereviewed criteria for calling or returning for further evaluation. Johnny Elam MD [facility] CNNURSEon 01-13-2018 CNNURSE Nurse Visit (PEDSWS) ----FELICIA WELLER ([id number]) 1 MDate Time Provider Department01/13/18 9:00 AM NUR[facility] PED[facility] During your visit today, we recorded the following information about you:Referring Provider: SELF [200]Allergies As of Date: 01/13/2018(No Known Allergies)Date Reviewed: 12/12/2017Reviewed by: Iona Valentino RN - Fully AssessedPrimary Visit Diagnosis:Need for vaccination [Z23]Order(s):PNEUMOCOCCAL IMMUNIZATION PPSV 23 [[id number]] Order #: [id number] List As Of Date 01/13/2018 Noted Resolved Laceration of spleen [S36.039A] INVALID FOR* Status:Closed by DELORIS JORGENSEN LPN on 01/13/18 [facility] CNPGaye 12-14-2017 CNPN Telephone (PEDSWS) ----FELICIA WELLER ([id number]) 1 MDate Time Provider Department12/14/17 HAWA DONOVAN During your visit today, we recorded the following information about you:Clementina Carrillo LPN 12/14/2017 10:57 AM SignedPatient has been identified by name and date of :YesReason for call: Pt had a splenic laceration approx 6 weeks ago and pt startedwith congestion yesterday and this am he woke with a cough. No fever, otherwisept states he feels fine. Mom states she was told if pt became ill he should doa dose of PCN and then maybe a broad spectrum ATB.Duration of symptoms: 1/2 daysStated concerns from patient: Mom questions if pt would need treated or monitorfor further symptoms, like a fever? Did advice mom of UC for over the weekendif symptoms changed.Is patient having any pain? Ravindra calling: parent: Shanthi patient at: on [phone] (home) [phone] (cell)Closing statement:Thank you for calling [facility]. Your message will be forwarded to theprovider and we will return your call.. If this is an emergency, please [email or web address].Clementina Donovan MD 12/14/2017 11:32 AM SignedWould need seen at urgent care or [facility] that is where hisID specialist is.Clotilde Martinez RN 12/14/2017 12:16 PM SignedMessage left for parent to return call.Diane Gallagher RN, RN 12/18/2017 2:28 PM Signedspoke with mother, states when I called in it was 1st thing in the am and bythe time you called and left a message he was perfectly fine, I think it wasjust a morning thing, he hasn't had any problems sinceFlody Boss As of Date: 12/14/2017(No Known Allergies)Date Reviewed: 12/12/2017Reviewed by: Iona Valentino RN - Fully AssessedReason for Visit: Question [5015]Problem List As Of Date 12/14/2017 Noted Resolved Laceration of spleen [S36.039A] INVALID FOR* Status:Closed by HAWA DONOVAN MD on 12/14/17 [facility] CNOVon 12-12-2017 CNOV Office Visit (PEDSWS) ----FELICIA WELLER ([id number]) 1 MDate Time Provider Department12/12/17 8:00 AM JOHNNY ELAM PEDSWS During your visit today, we recorded the following information about you: Temperature Pulse Respiration Blood pressure 98.6 degrees 80/minute 20/minute 108/68 Weight Height 63 kg 1.81 mAdam Suzanne Elam MD 12/12/2017 9:19 AM Ngefba52 year old male presents for a routine 12+ year check-up. [] GENERAL QUESTIONS color enhancedsectionPatient concerns: Issues: recheck splenic laceration s/p 4 coils to splenicartery, did receive Hib, menactra and prevnar. Per patient the surgeon stateshe is allowed back to work December 30Parental concerns: Issues: see aboveDiet: milk: whole ; balanced diet; specific issues: NONEStools: NORMAL (soft and appropriately sized)Urine: NO PROBLEMSFluorideWater: uses significant amount of spring waterPrescription: age 12-16 years - not using prescribed fluorideOngoing subspecialty care: Ongoing care: was following up with pediatricsurgeon but per patient is cleared, they did recommend f/u with ID specialistOngoing ancillary care: NONESchool/etc: none,Interests AND Activities: workSignificant stresses: No [] SPORTS QUESTIONS color enhancedsectionHistory of seizures: NoHistory of concussion: NoHistory of syncope: NoHistory of heart problems: NoHistory of hypertension: NoHistory of asthma: NoHistory of single kidney: NoHistory of skeletal problems: NoHistory of any significant injury: Yes (splenic laceration)Family history of either heart problems or sudden 0 - Not at All2. Little interest or pleasure in doing things? -> 0 - Not At All3. Trouble falling asleep, staying asleep, or sleeping too much? -> 0 - Not At All4. Poor appetite, weight loss, or overeating? -> 0 - Not At All5. Feeling tired or little energy? -> 0 - Not At All6. Feeling bad about yourself-or feeling that you are a failure or that youhave let yourself or your family down? -> 0 - Not At All7. Trouble concentrating on things like school work, reading or watching TV? -> 0 - No- t At All8. Moving or speaking so slowly that other people could have notices? Or theopposite-being so fidgety or restless that you were moving around a lot morethan usual? -> 0 - Not At All9. Thoughts that you would be better off or of hurting yourself in someway? -> 0 - Not At All12. Has there been a time in the past month when you have had serious thoughtsabout ending your life? -> No13. Have you ever tried to kill yourself or made a suicide attempt? -> NoSCORE -> 0Encounter Number: [id number] Status:Closed by JOHNNY ELAM MD on 12/12/17 [facility] PROGRESSon 12-12-2017 Protein mass conc HNO ID: [id number] thor: Johnny Valdez: (none)Author Type: PhysicianType: Progress NotesFiled: 12/12/2017 9:19 AMNote Text:12 year old male presents for a routine 12+ year check-up. [] GENERAL QUESTIONS colorenhanced sectionPatient concerns: Issues: recheck splenic laceration s/p 4 coils tosplenic artery, did receive Hib, menactra and prevnar. Per patient thesurgeon states he is allowed back to work December 30Parental concerns: Issues: see aboveDiet: milk: whole ; balanced diet; specific issues: NONEStools: NORMAL (soft and appropriately sized)Urine: NO PROBLEMSFluorideWater: uses significant amount of spring waterPrescription: age 12-16 years - not using prescribed fluorideOngoing subspecialty care: Ongoing care: was following up with pediatricsurgeon but per patient is cleared, they did recommend f/u with IDspecialistOngoing ancillary care: NONESchool/etc: none,Interests AND Activities: workSignificant stresses: No [] SPORTS QUESTIONS colorenhanced sectionHistory of seizures: NoHistory of concussion: NoHistory of syncope: NoHistory of heart problems: NoHistory of hypertension: NoHistory of asthma: NoHistory of single kidney: NoHistory of skeletal problems: NoHistory of any significant injury: Yes (splenic laceration)Family history of either heart problems or sudden Normal [facility] Encounters Encounter Date Encounter Type Care Provider Facility Start: 06-30-2024 End: 06-30-2024 Emergency department patient visit TRISTAN SANTIZO [facility] Start: 2018 End: 04-21-2018 Patient encounter JOHNNY ELAM [facility] Start: 01-13-2018 End: 01-15-2018 Patient encounter JOHNNY ELAM [facility] Start: 12-12-2017 End: 12-13-2017 Patient encounter JOHNNY ELAM [facility] Clinical Note 06-30-2024 Note Date & Type Note Facility 06-30-2024 Note Discharge Instructio ns Discharge Summary [address] [address] [id number] 06/30/2024 Patient: FELICIA WELLER Sex: Male : 2005 Age: 19y Thank you for visiting [facility]. You have been evaluated today by Tristan Santizo D.O. for the following condition(s): Principal Diagnosis Gastroenteritis. INSTRUCTIONS Prescription Medications: ondansetron 4 mg disintegrating tablet: Take 1 tablet on tongue every eight hours for nausea/vomiting for 5 days, dispense 15 tablet. Refills 0. Pharmacy: [facility] [id number] [place] [id number]. dicyclomine 10 mg capsule: 20 mg every eight hours as needed for pain for 5 days, dispense 30 capsule. Refills 0. [facility] [id number] [place] [address]. Follow-up: Follow up with your healthcare provider in two days. Call for an appointment. You have been given the following additional information: Noninfectious Gastroenteritis (Adult) 1 of 6 Discharge Instructions Patient Signature Facility Motor Vehicle Licence Examiner Date/Time General Instructions with ExitWriter [address] [address] [id number] 06/30/2024 Patient: FELICIA WELLER Sex: Male : 2005 Age: 19y Thank you for visiting [facility]. You have been evaluated today by Tristan Santizo D.O. for the following condition(s): Principal Diagnosis Gastroenteritis. INSTRUCTIONS Prescription Medications: ondansetron 4 mg disintegrating tablet: Take 1 tablet on tongue every eight hours for nausea/vomiting for 5 days, dispense 15 tablet. Refills 0. Pharmacy: [facility] [id number] [place] [address]. dicyclomine 10 mg capsule: 20 mg every eight hours as needed for pain for 5 days, dispense 30 capsule. Refills 0. Pharmacy: [facility] [id number] [place] [address]. Follow-up: Follow up with your healthcare provider in two days. Call for an appointment. 2 of 6 Discharge Instructions ADDITIONAL INFORMATION Noninfectious Gastroenteritis (Adult) Gastroenteritis can cause nausea, vomiting, diarrhea, and cramping in the belly. This may occur from food sensitivity, inflammation of your gastrointestinal tract, medicines, stress, or other causes not related to infection. Your symptoms will usually last from 1 to 3 days, but can last longer. Antibiotics are not effective, but simple home treatment will be helpful. Home care Medicine You may use acetaminophen or NSAID medicines like ibuprofen or naproxen to control fever, unless another medicine is prescribed. (Note: If you have chronic liver or kidney disease, or ever had a stomach ulcer or gastrointestinaI bleeding, talk with your healthcare provider before using these medicines.) Aspirin should never be used in anyone under 18 years of age who is ill with a fever. It may cause severe liver damage. Don't increase your NSAID medicines if you are already taking these medicines for another 3 of 6 Discharge Instructions condition (like arthritis). Don't use NSAIDS if you are on aspirin (such as for heart disease, or after a stroke). If medicines for diarrhea or vomiting are prescribed, take only as directed. General care and preventing spread of the illness If symptoms are severe, rest at home for the next 24 hours or until you feel better. Hand washing with soap and water is the best way to prevent the spread of infection. Wash your hands after touching anyone who is sick. Wash your hands after using the toilet and before meals. Clean the toilet after each use. Caffeine, tobacco, and alcohol can make your diarrhea, cramping, and pain worse. Diet Water and clear liquids are important so you do not get dehydrated. Drink a small amount at a time. Don't force yourself to eat, especially if you have cramps, vomiting, or diarrhea. When you finally decide to start eating, do not eat large amounts at a time, even if you are hungry. If you eat, avoid fatty, greasy, spicy, or fried foods. Don't eat dairy products if you have diarrhea; they can make the diarrhea worse. During the first 24 hours (the first full day), follow the diet below: Beverages: Water, clear liquids, soft drinks without caffeine, like madan kiki; mineral water (plain or flavored); decaffeinated tea and coffee. Soups: Clear broth, consomm, and bouillon sports drinks aren't a good choice because they have too much sugar and not enough electrolytes. In this case, commercially available products called oral rehydration solutions are best. Desserts: Plain gelatin, ice pops, and fruit juice bars (more content not included)... [facility] Summary Purpose Family History No Family History Records FoundNo Family History Records FoundNo Family History Records FoundNo Family History Records Found Advance Directives No Advanced Directives Records FoundNo Advanced Directives Records FoundNo Advanced Directives Records FoundNo Advanced Directives Records Found Additional Source Comments (unrecognized sect ion and content) No Status Records FoundNo Status Records FoundNo Status Records FoundNo Status Records Found INFORMATION SOURCE (unrecogn ized section and content) DATE CREATED AUTHOR 05/22/2018 [facility] DATE CREATED AUTHOR AUTHOR'S ORGANIZ ATION 01/30/2020 [facility] DATE CREATED AUTHOR AUTHOR'S ORGANIZ ATION 08/23/2020 [facility] DATE CREATED AUTHOR AUTHOR'S ORGANIZ ATION 07/02/2024 [facility] FOR RECORDS PERTAINING TO PATIENTS WHO ARE OR HAVE BEEN ENROLLED IN A CHEMICAL DEPENDENCY/SUBSTANCEABUSE PROGRAM, SOME INFORMATION MAY BE OMITTED. This clinical summary was aggregated from multiple sources. Caution should be exercised in using it in the provision of clinical care. This summary normalizes information from multiple sources, and as a consequence, information in this document may materially change the coding, format and clinical context of patient data. In addition, data may be omitted in some cases. CLINICAL DECISIONS SHOULD BE BASED ON THE PRIMARY CLINICAL RECORDS. [employer] provides no warranty or guarantee of the accuracy or completeness of information in this document.
--- NOTE | 2024-12-20 16:06 | EX.ED.DYSGE1 ---
HPI History of Present Illness Chief Complaint: General Illness Informant: patient Onset/Context/Timing Onset: Days (3) Context: Gradual Onset Timing: Continuous Quality: Sharp Location: Occipital area and jaw Worsened by: Opening his jaw, bright lights Relieved by: Nothing Narrative Narrative: Patient presents with fever, sore throat, jaw pain that has been getting worse over the past 3 days. Patient states his temperature today was up to 104.6. Patient states he started with a sore throat today. Patient admits to some nausea but denies any vomiting. Patient states he has a headache that is over the occipital area. Patient states it is constant. Patient describes it as sharp. Patient states his pain is worse when he opens his jaw and with bright lights. Patient states nothing seems to help it. Patient denies any cough. PFSH PFSH Medical History no medical history no medical history Home Medications ?Medication ?Instructions ?Recorded ?Last Taken ?Type NK 12/20/24 Unknown History Allergy/AdvReac Type Severity Reaction Status Date / Time No Known Allergies Allergy Verified 12/20/24 14:54 Surgical History (Updated 12/20/24 @ 16:[address] Pipe Reece DO) S/P ORIF (open reduction internal fixation) fracture H/O splenectomy Social History Smoking Status: Current every day smoker tobacco type: cigarettes ROS ROS ED Constitutional Constitutional ED: Reports fever(s); Denies chills Eyes Eyes: Denies blurry vision or change in vision ENT ENT ED: Reports sore throat; Denies rhinorrhea Cardiovascular Cardiovascular: Denies chest pain or palpitations Respiratory/Chest Respiratory/Chest: Denies cough or dyspnea Gastrointestinal Gastrointestinal: Reports nausea; Denies vomiting Genitourinary Genitourinary ED: Denies dysuria or hematuria Musculoskeletal Musculoskeletal: Reports back pain and neck pain Integumentary Denies abscess or rash Neurologic Neurologic: Reports headache(s); Denies weakness Allergic/Immunologic Allergic/Immunologic ED: Denies mouth swelling or urticaria EXAM Physical Exam Const Vital Signs: 12/20/24 14:52 12/20/24 14:56 12/20/24 15:54 Temperature 98.9 F 98.7 F Temperature Source Oral Oral Pulse Rate 108 H 88 Respiratory Rate 18 18 Respiratory Effort Normal Non-Labored Respiratory Pattern Normal Blood Pressure 108/70 97/57 L Blood Pressure Mean 82 70 Pulse Ox 98 99 Oxygen Delivery Method Room Air Room Air 12/20/24 17:00 12/20/24 17:58 12/20/24 18:58 Temperature 98.5 F 98.4 F 98.5 F Temperature Source Oral Oral Oral Pulse Rate 90 89 99 Respiratory Rate 12 20 H 19 H Respiratory Effort Respiratory Pattern Blood Pressure 104/70 93/68 95/66 Blood Pressure Mean 81 76 75 Pulse Ox 100 100 100 Oxygen Delivery Method Room Air Room Air Room Air 12/20/24 20:00 12/20/24 20:00 Temperature 98.5 F Temperature Source Oral Pulse Rate 97 92 Respiratory Rate 18 16 Respiratory Effort Respiratory Pattern Blood Pressure 105/73 Blood Pressure Mean 83 Pulse Ox 94 100 Oxygen Delivery Method Room Air Positive well nourished and well developed General Appearance ED: well developed and NAD HEENT Reports moist mucous membranes HEENT Narrative: Oropharynx is erythematous. There are no exudates noted. Airway is patent. Neck no JVD Neck Narrative: There is tender anterior cervical lymphadenopathy. Resp normal respiratory effort and clear to auscultation bilaterally Cardio regular rhythm Rate: tachycardic GI non-tender and non-distended Palpation: soft Extremity normal to inspection Neuro oriented x3, CN's II-XII intact bilaterally and no sensory deficits noted Sensorium / Orientation: alert Motor Exam: strength 5/5 throughout Psych mental status grossly normal MDM MDM MDM Narrative Medical decision making narrative: Differential diagnosis includes strep pharyngitis, viral illness, electrolyte abnormality, pneumonia, bronchitis, urinary tract infection, and anxiety. Chest x-ray will be obtained to assess for pneumonia and bronchitis. COVID-19, influenza, and RSV PCR will be obtained to assess for viral illness. Rapid strep will be obtained to assess for strep pharyngitis. Blood cultures will be obtained to assess for sepsis. Serum lactate will be obtained to assess for sepsis. Urinalysis will be obtained to assess for urinary tract infection and hematuria. History & Record Review Additional record(s) reviewed:: No prior records Lab Data Attestation: I reviewed the patient's lab results. Lab results narrative: CBC was reviewed. There is a mild leukocytosis of 13.7. The remainder is within normal limits. Basic metabolic profile was reviewed. Sodium was slightly low at 131 and chloride was 95. Glucose was slightly elevated at 108. The remainder is within normal limits. PT with INR and PTT were reviewed and were within normal limits. Serum lactate was reviewed and was normal at 1.0. Urinalysis was reviewed. There is no evidence of urinary tract infection or hematuria. COVID-19 PCR was reviewed and was negative. Influenza PCR was reviewed and was negative for influenza A and influenza B. RSV PCR was reviewed and was negative. Rapid strep was reviewed and was negative. Labs: Laboratory Results - last 24 hr 12/20/24 12/20/24 16:00 16:20 WBC 13.7 H RBC 4.61 Hgb 15.1 Hct 43.1 MCV 93.5 MCH 32.8 H MCHC 35.0 RDW Std Deviation 44.4 H RDW Coeff of Scot 13.0 Plt Count 202 MPV 9.6 Immature Gran % (Auto) 0.600 Neut % (Auto) 90.2 H Lymph % (Auto) 3.6 L [place] % (Auto) 5.1 Eos % (Auto) 0.1 Baso % (Auto) 0.4 Absolute Neuts (auto) 12.4 H Absolute Lymphs (auto) 0.50 L Nucleated RBC % 0 PT 14.8 INR 1.1 APTT 26.1 Sodium 131 L Potassium 4.1 Chloride 95 L Carbon Dioxide 24.4 Anion Gap 12 BUN 12 Creatinine 1.09 Estim Creat Clear Calc 115.03 Est GFR (MDRD) Non-Af 99 BUN/Creatinine Ratio 11.0 Glucose 108 H Lactic Acid 1.0 Calcium 9.0 Urine Color Yellow Urine Clarity Clear Urine pH 6.5 Ur Specific [place] 1.015 Urine Protein 30 H Urine Glucose (UA) Normal Urine Ketones 15 H Urine Occult Blood Negative Urine Nitrite Negative Urine Bilirubin Negative Urine Urobilinogen 1 H Ur Leukocyte Esterase 25 H Urine RBC 0 SEEN Urine WBC 0-5 SEEN Ur Squamous Epith Cells 0-5 SEEN Urine Bacteria 3+ Urine Mucus 1+ Radiography Chest X-Ray - ED: 2 View, Read by ED Physician, Read by Radiologist and No Acute Disease Diagnostic Testing: Clinical Impression(s) from Imaging Studies Chest X-Ray 12/20/24 16:30 IMPRESSION: No focal consolidations. Reading Location: [facility] and lateral chest x-ray was obtained. There are 2 views. On my independent interpretation, lung méndez are clear. There is normal cardiac silhouette. Bony thorax is normal. There is no acute process noted. Radiologist also interpreted the x-ray and agrees. Treatment and Re-Evaluation :: Patient was given IV fluids. Patient was advised of his findings. Patient was feeling better on reevaluation. Patient was able to touch his chin to his chest. The patient was advised that this could be a viral illness. Patient was instructed to drink plenty of fluids. Patient was instructed to continue Tylenol or ibuprofen as needed for any fevers or pain. Patient was instructed to follow-up with his primary care physician in 3 to 5 days. Patient understood and was agreeable with plan. All questions were answered. Discharge Plan Triage Chief Complaint: General Illness ED Provider: Pipe Reece Dx/Rx/DC Orders Clinical Impression: Viral illness, Febrile illness Instructions: ED Viral Syndrome (Adult) Prescriptions: No Action NK Primary Care Provider: Care Physician,No Primary Referrals: Pipe Bowling MD [Med Staff - Nitroglycerin Distributor] - 3-5 Days Care Physician,No Primary [Primary Care Provider] - Print Language: Mauritian Disposition Disposition: Home, Self Care
[2024-12-20] MEDS: 0.9% Normal Saline (1000mL) 1,000 ML 1000 ML IV ×2 (16:29→19:50)
--- NOTE | 2024-12-20 16:30 | RAD_ITS ---
PROCEDURE: CHEST PA AND LATERAL 12/20/2024 REASON FOR EXAM: FEVER TECHNIQUE: CHEST PA AND LATERAL COMPARISON: 02/02/2020 FINDINGS: No focal consolidation. No pleural effusion or pneumothorax. Cardiac silhouette is within normal limits. No acute fractures. RAD/Chest PA and Lateral IMPRESSION: No focal consolidations. Reading Location: [id number]
[2024-12-20 16:35] LABS: Red Blood Cells-Urine 0 SEEN /hpf (0-5)
[2024-12-20 16:40] LABS: Color, Urine Yellow (Yellow); Glucose, Dipstick Normal (Normal); Ketone-Dipstick 15 mg/dl (Negative); Leukocyte Esterase-Dipstick 25 /ul (Negative); Nitrite-Dipstick Negative (Negative); Occult Blood-Urine Negative /ul (Negative); Protein-Dipstick 30 mg/dl (Negative); Specific Gravity, Urine 1.015 (1.002-1.030); Urine Bilirubin Dipstick Negative (Negative); Urine Clarity Clear (Clear); Urine Urobilinogen 1 mg/dl (Normal); Urine pH 6.5 (5.0 - 8.0)
[2024-12-20 16:40] LABS: Absolute Neutrophil Count 12.4 X10^3/uL (2.0-7.7); Basophil# 0.05 X10^3/uL; Basophil% 0.4 % (0-1); Eosinophil# 0.01 X10^3/uL; Eosinophils% 0.1 % (0-5); Hematocrit 43.1 % (40-54); Hemoglobin 15.1 g/dL (13.0-16.5); Lymphocyte % 3.6 % (19-41); Mean Corpuscular Hgb 32.8 pg (27.0-32.0); Mean Corpuscular Volume 93.5 fL (80-94); Mean Platelet Vol. 9.6 fl (6.2-12.0); Monocyte% 5.1 % (0-10); NRBC Flagged by Analyzer 0 % (0-5); Neutrophil # 12.39 X10^3/uL (2.7-7.7); Neutrophil % 90.2 % (47-70); POSITIVE DIFFERENTIAL YES; Platelet Count 202 K/mm3 (150-450); RBC Distribution Width SD 44.4 fl (35.1-43.9); Red Blood Count 4.61 M/mm3 (4.6-6.2); White Blood Count 13.7 K/mm3 (4.4-11.0)
[2024-12-20 16:45] LABS: Bacteria 3+ /hpf (None Seen); Mucous, Urine 1+ /hpf (<or=2+); Squamous Epithelial Cells - UA 0-5 SEEN /hpf (0-5); White Blood Cells 0-5 SEEN /hpf (0-5)
[2024-12-20 16:48] LABS: International Normalized Ratio 1.1; Prothrombin Time (Protime)PT. 14.8 SECONDS (11.7-14.9)
[2024-12-20 16:49] LABS: Partial Thromboplast Time 26.1 Seconds (24.1-36.2)
[2024-12-20 16:57] LABS: Anion Gap 12 (5-15); BUN 12 mg/dL (4-19); Carbon Dioxide 24.4 mmol/L (21.0-32.0); Chloride 95 mmol/L (98-108); Creatinine, Serum 1.09 mg/dL (0.70-1.20); EST Glomerular Filtration Rate 99 (>60); Estimated Creatinine Clearance 115.03 ml/min (50-250); Glucose 108 mg/dL (70-99); Potassium 4.1 mmol/L (3.3-5.1); Sodium Level 131 mmol/L (133-145)
== END 2024-12-20 20:35 | disposition home or self-care (01) ==
PROVIDERS: Emergency Provider Emergency Medicine; Visit Provider Emergency Medicine
DX: B34.9 Viral infection, unspecified (principal); F17.210 Nicotine dependence, cigarettes, uncomplicated
CPT/HCPCS: 36415; 71046; 80048; 81001; 83605; 85025; 85610; 85730; 87040; 87086; 87088; 87631; 87651; 96360; 96361; 99284; A4216